=== PATIENT | female | born 1985 | race Caucasian/White ===

== ENCOUNTER → 2020-07-30 | Outpatient (CLI) | payer OTHER ==
[2020-07-30 12:56] LABS: HEMOGLOBIN 11.9 gm/dl (12.3-15.3); RED BLOOD COUNT 4.25 M/UL (4.00-5.10); WHITE BLOOD COUNT 9.2 K/UL (4.5-11.0)
[2020-07-30 13:17] LABS: BUN/CREATININE RATIO 20 (0-10)
[2020-07-31 08:13] LABS: RHEUMATOID ARTHRITIS FACTOR <10.0 IU/mL (0.0-13.9)
[2020-08-02 14:11] LABS: ANTI-CENTROMERE B ANTIBODIES <0.2 AI (0.0-0.9); ANTISCLERODERMA-70 ANTIBODIES <0.2 AI (0.0-0.9); RNP ANTIBODIES <0.2 AI (0.0-0.9); SJOGREN'S ANTI-SS-A <0.2 AI (0.0-0.9); SJOGREN'S ANTI-SS-B <0.2 AI (0.0-0.9); SMITH ANTIBODIES <0.2 AI (0.0-0.9)
[2020-08-03 07:09] LABS: CCP ANTIBODIES IGG/IGA 4 units (0-19)
[2020-08-03 13:14] LABS: ANTIHISTONE ANTIBODIES 0.4 Units (0.0-0.9)
== END ==
LOC: RAD 11:49
PROVIDERS: Nurse Practitioner Family
DX: M54.2 Cervicalgia (principal); M25.50 Pain in unspecified joint; D89.9 Disorder involving the immune mechanism, unspecified; R76.8 Other specified abnormal immunological findings in serum; M47.812 Spondylosis without myelopathy or radiculopathy, cervical region
CPT/HCPCS: 72040; 80053; 81001; 82570; 83520; 84156; 85025; 86038; 86200; 86235; 86431